=== PATIENT | male | born 1975 | race Caucasian/White ===

== ENCOUNTER 2017-08-26 12:11 | Emergency (ER) | payer BC ==
[2017-08-26] MEDS ORDERED: HYDROcodone/Acetaminophen 5/325 mg Tablet ONE (13:14)
[2017-08-26] MEDS ORDERED: Ondansetron ODT 4 MG TAB ONE (13:14)
[2017-08-26 13:45] LABS: Bilirubin Negative (Negative); Blood, Urine Trace (Negative); Clarity Clear (Clear); Glucose, Urine (Dipstick) 500 mg/dL (Negative); Leukocyte Negative (Negative); Nitrite Negative (Negative); Protein, Urine (Dipstick) 100 mg/dL (Neg-Trace); Specific Gravity, Urine 1.025 (1.005-1.030); Urobilinogen 0.2 mg/dL (0.2-1.0); pH, Urine 5.5 (5.0-9.0)
[2017-08-26 13:46] LABS: Bacteria/HPF Rare-Few HPF (None Seen); RBC/HPF 0-3 HPF (0-3); Squamous Epithelial None Seen HPF (0-3); WBC/HPF None Seen HPF (0-3)
--- NOTE | 2017-08-26 15:00 | RAD ---
RADIOGRAPH CHEST 1 VIEW: HISTORY: 42-year-old male with cough and fever. FINDINGS: There are no air space densities, pulmonary edema, pneumothorax, or cardiomegaly. The lateral costop hrenic angles are sharp. IMPRESSION: No acute cardiopulmonary findings. jn [] POS: [email or web address]
== END 2017-08-26 14:23 | disposition home or self-care (01) ==
LOC: SCSER 12:11
DX: B34.9 Viral infection, unspecified (principal); Z79.899 Other long term (current) drug therapy; Z79.4 Long term (current) use of insulin
CPT/HCPCS: 71045; 81003; 81015; 87804; Q0162

== ENCOUNTER 2018-06-15 09:00 | Outpatient (CLI) | payer BC ==
--- NOTE | 2018-06-15 10:34 | RAD ---
LUMBAR SPINE TWO VIEWS: 06/15/2018 HISTORY: Low back pain. COMPARISON: None. FINDINGS: Five lumbar type vertebral bodies are present. The pedicles appear intact on the frontal imaging. L umbar vertebral body height and alignment are within normal limits. No acute osseous abnormality is seen. IMPRESSION: No acute osseous abnormality. POS: [facility]
== END 2018-06-15 09:01 | disposition home or self-care (01) ==
LOC: BICRAD 09:00
PROVIDERS: ATTEND Family Medicine
DX: M54.5 Low back pain (principal); G89.29 Other chronic pain
CPT/HCPCS: 72100

== ENCOUNTER 2020-03-13 19:00 | Outpatient (CLI) | payer BC | END 2020-03-13 19:01 | disposition home or self-care (01) | LOC: SLEEPLAB 19:00 | PROVIDERS: ATTEND Student in an Organized Health Care Education/Training Program | DX: G47.33 Obstructive sleep apnea (adult) (pediatric) (principal); R53.83 Other fatigue; R09.89 Other specified symptoms and signs involving the circulatory and respiratory systems; R51 Headache; E66.9 Obesity, unspecified; R06.83 Snoring; G31.84 Mild cognitive impairment of uncertain or unknown etiology | CPT/HCPCS: 95810 ==

== ENCOUNTER 2020-04-02 19:00 | Outpatient (CLI) | payer BC | END 2020-04-02 19:01 | disposition home or self-care (01) | LOC: SLEEPLAB 19:00 | PROVIDERS: ATTEND Student in an Organized Health Care Education/Training Program | DX: G47.33 Obstructive sleep apnea (adult) (pediatric) (principal); R53.83 Other fatigue; R09.89 Other specified symptoms and signs involving the circulatory and respiratory systems; R51 Headache; G31.84 Mild cognitive impairment of uncertain or unknown etiology; R06.83 Snoring; E66.9 Obesity, unspecified | CPT/HCPCS: 95811 ==

== ENCOUNTER 2021-05-17 15:53 | Outpatient (CLI) | payer BC ==
[2021-05-18 00:09] LABS: SARS-CoV-2 PCR by NAA Not Detected (NotDetected)
== END 2021-05-17 15:54 | disposition home or self-care (01) ==
LOC: LABBT 15:53
PROVIDERS: ATTEND Ophthalmology Retina Specialist
DX: Z01.812 Encounter for preprocedural laboratory examination (principal); Z20.822 Contact with and (suspected) exposure to COVID-19
CPT/HCPCS: U0003; U0005

== ENCOUNTER 2021-05-20 08:22 | Day surgery (SDC) | payer BC ==
[2021-05-19 09:50] VITALS: BMI 28.5
[~2021-05-20 08:22] MED LIST: EPINEPHrine 0.3 MG, Dextrose 50% 3 ML in Ophthalmic Irrigation Solution 500 ML IRR SCH; Famotidine/PF 20 mg/2ml Vial ONE; Fentanyl 100 MCG/2 ML VIAL ONE; Midazolam HCl 2 mg/2 ml Vial ONE
[2021-05-20] MEDS ORDERED: Cyclopentolate 1% Opth Drop 2 ML BOT ONE (08:59)
[2021-05-20] MEDS ORDERED: Phenylephrine 2.5% Ophth Soln 5 ML BOT ONE (08:59)
[2021-05-20] MEDS ORDERED: Furosemide 40 MG/4 ML VIAL SLOW IVP SCH (10:15)
[2021-05-20] MEDS ORDERED: Triamcinolone 40 MG/ML VIAL ONE (10:37)
[2021-05-20] MEDS ORDERED: Lidocaine 1% PF 5 ML VIAL ONE (10:37)
[2021-05-20] MEDS ORDERED: Maxitrol 0.1% Opth Oint 3.5 GM TUBE ONE (10:37)
[2021-05-20] MEDS ORDERED: Bupivacaine PF 0.75% SDV 10 ML ONE (10:37)
[2021-05-20] MEDS ORDERED: PROPOFOL 200 MG/20 ML VIAL ONE (10:37)
[2021-05-20] MEDS ORDERED: Lidocaine 4% PF 5 ML AMP ONE (10:37)
[2021-05-20] MEDS ORDERED: Ondansetron PF 4 MG/2 ML Vial ONE (10:37)
[2021-05-20] MEDS ORDERED: Metoclopramide HCl 10 MG/2 ML VIAL ONE (10:37)
[2021-05-20] MEDS ORDERED: Dextrose 50% Abboject 50 ML SYRINGE ONE (10:37)
== END 2021-05-20 13:58 | disposition home or self-care (01) ==
LOC: SDC 08:22
PROVIDERS: ATTEND Ophthalmology Retina Specialist
PROC: 08T43ZZ Resection of Right Vitreous, Percutaneous Approach (ICD-10-PCS; principal; 2021-05-20)
PROC: 08QE3ZZ Repair Right Retina, Percutaneous Approach (ICD-10-PCS; principal; 2021-05-20)
PROC: 08NE3ZZ Release Right Retina, Percutaneous Approach (ICD-10-PCS; principal; 2021-05-20)
DX: H43.11 Vitreous hemorrhage, right eye (principal); H33.41 Traction detachment of retina, right eye; E11.9 Type 2 diabetes mellitus without complications; Z79.4 Long term (current) use of insulin; Z79.84 Long term (current) use of oral hypoglycemic drugs; Z79.899 Other long term (current) drug therapy; Z88.0 Allergy status to penicillin
CPT/HCPCS: J0171; J2250; J2405; J2704; J2765; J3010; J3301; J3490; S0028

== ENCOUNTER 2021-06-14 15:12 | Outpatient (CLI) | payer BC ==
[2021-06-15 09:11] LABS: SARS-CoV-2 PCR by NAA Not Detected (NotDetected)
== END 2021-06-14 15:13 | disposition home or self-care (01) ==
LOC: LABBT 15:12
PROVIDERS: ATTEND Ophthalmology Retina Specialist
DX: Z01.812 Encounter for preprocedural laboratory examination (principal); Z20.822 Contact with and (suspected) exposure to COVID-19
CPT/HCPCS: U0003; U0005

== ENCOUNTER 2021-06-17 10:00 | Day surgery (SDC) | payer BC ==
[2021-06-15 13:30] VITALS: BMI 29.2
[~2021-06-17 10:00] MED LIST changes: -Famotidine/PF 20 mg/2ml Vial ONE; -Fentanyl 100 MCG/2 ML VIAL ONE; -Midazolam HCl 2 mg/2 ml Vial ONE
[2021-06-17] MEDS ORDERED: Cyclopentolate 1% Opth Drop 2 ML BOT ONE (10:57)
[2021-06-17] MEDS ORDERED: Phenylephrine 2.5% Ophth Soln 5 ML BOT ONE (10:57)
[2021-06-17] MEDS ORDERED: Lidocaine 4% PF 5 ML AMP ONE (12:20)
[2021-06-17] MEDS ORDERED: Dextrose 50% Abboject 50 ML SYRINGE ONE (12:20)
[2021-06-17] MEDS ORDERED: Lidocaine 1% PF 5 ML VIAL ONE (12:20)
[2021-06-17] MEDS ORDERED: Ondansetron PF 4 MG/2 ML Vial ONE (12:20)
[2021-06-17] MEDS ORDERED: Maxitrol 0.1% Opth Oint 3.5 GM TUBE ONE (12:20)
[2021-06-17] MEDS ORDERED: Triamcinolone 40 MG/ML VIAL ONE (12:20)
[2021-06-17] MEDS ORDERED: Bupivacaine PF 0.75% SDV 10 ML ONE (12:20)
[2021-06-17] MEDS ORDERED: PROPOFOL 200 MG/20 ML VIAL ONE (12:20)
[2021-06-17] MEDS ORDERED: Fentanyl 100 MCG/2 ML VIAL ONE (12:27)
== END 2021-06-17 14:21 | disposition home or self-care (01) ==
LOC: SDC 10:00
PROVIDERS: ATTEND Ophthalmology Retina Specialist
PROC: 08T53ZZ Resection of Left Vitreous, Percutaneous Approach (ICD-10-PCS; principal; 2021-06-17)
DX: H33.42 Traction detachment of retina, left eye (principal); Z79.4 Long term (current) use of insulin; Z79.84 Long term (current) use of oral hypoglycemic drugs; Z79.899 Other long term (current) drug therapy; Z88.0 Allergy status to penicillin
CPT/HCPCS: 36416; J0171; J2405; J2704; J3010; J3301; J3490

== ENCOUNTER 2021-08-02 07:10 | Outpatient (CLI) | payer BC ==
[2021-08-02 21:41] LABS: SARS-CoV-2 PCR by NAA Not Detected (NotDetected)
== END 2021-08-02 07:11 | disposition home or self-care (01) ==
LOC: LABBT 07:10
PROVIDERS: ATTEND Ophthalmology Retina Specialist
DX: Z01.812 Encounter for preprocedural laboratory examination (principal); H33.22 Serous retinal detachment, left eye; H54.7 Unspecified visual loss; Z20.822 Contact with and (suspected) exposure to COVID-19
CPT/HCPCS: U0003; U0005

== ENCOUNTER 2021-08-05 08:04 | Day surgery (SDC) | payer BC ==
[2021-08-02 11:53] VITALS: BMI 29.2
[~2021-08-05 08:04] MED LIST changes: -EPINEPHrine 0.3 MG, Dextrose 50% 3 ML in Ophthalmic Irrigation Solution 500 ML IRR SCH; +Fentanyl 100 MCG/2 ML VIAL ONE; +Midazolam HCl 2 mg/2 ml Vial ONE
[2021-08-05] MEDS ORDERED: Lidocaine 1% MPF 2 ML VIAL ONE (09:11)
[2021-08-05] MEDS ORDERED: Cyclopentolate 1% Opth Drop 2 ML BOT ONE (09:51)
[2021-08-05] MEDS ORDERED: Phenylephrine 2.5% Ophth Soln 5 ML BOT ONE (09:52)
[2021-08-05] MEDS ORDERED: Fentanyl 100 MCG/2 ML VIAL ONE (11:00)
[2021-08-05] MEDS ORDERED: Midazolam HCl 2 mg/2 ml Vial ONE (11:00)
[2021-08-05] MEDS ORDERED: PROPOFOL 20 ML ONE (11:00)
[2021-08-05] MEDS ORDERED: Maxitrol 0.1% Opth Oint 3.5 GM TUBE ONE (11:05)
[2021-08-05] MEDS ORDERED: Indocyanine Green 25 MG/10 ML VIAL ONE (11:05)
[2021-08-05] MEDS ORDERED: Triamcinolone 40 MG/ML VIAL ONE (11:05)
[2021-08-05] MEDS ORDERED: Bupivacaine PF 0.75% SDV 10 ML ONE (11:05)
[2021-08-05] MEDS ORDERED: Lidocaine 4% PF 5 ML AMP ONE (11:05)
[2021-08-05] MEDS ORDERED: Enoxaparin Sodium 30 MG/0.3 ML SYRINGE ONE (11:05)
[2021-08-05] MEDS ORDERED: CEFAZOLIN 1 GM VIAL ONE (11:05)
[2021-08-05] MEDS ORDERED: PROPOFOL 200 MG/20 ML VIAL ONE (11:05)
[2021-08-05] MEDS ORDERED: Dextrose 50% Abboject 50 ML SYRINGE ONE (11:05)
[2021-08-05] MEDS ORDERED: Fluorouracil 100 MG, Enoxaparin Sodium 25 MG, EPINEPHrine 0.3 MG, Dextrose 50% 3 ML in ... IRR SCH (13:00)
== END 2021-08-05 13:30 | disposition home or self-care (01) ==
LOC: SDC 08:04
PROVIDERS: ATTEND Ophthalmology Retina Specialist
PROC: 08T53ZZ Resection of Left Vitreous, Percutaneous Approach (ICD-10-PCS; principal; 2021-08-05)
PROC: 08NF3ZZ Release Left Retina, Percutaneous Approach (ICD-10-PCS; principal; 2021-08-05)
DX: H35.372 Puckering of macula, left eye (principal); H33.42 Traction detachment of retina, left eye; Z79.4 Long term (current) use of insulin; Z79.84 Long term (current) use of oral hypoglycemic drugs; Z79.899 Other long term (current) drug therapy; Z88.0 Allergy status to penicillin; Z98.890 Other specified postprocedural states
CPT/HCPCS: 67025; J0171; J0690; J1650; J2250; J2704; J3010; J3301; J3490; J9190

== ENCOUNTER 2022-03-10 06:26 | Day surgery (SDC) | payer OTHER ==
[2022-03-08 16:13] VITALS: BMI 28.5
[~2022-03-10 06:26] MED LIST changes: -Fentanyl 100 MCG/2 ML VIAL ONE; +Fluorouracil 100 MG, Enoxaparin Sodium 25 MG, EPINEPHrine 0.3 MG, Dextrose 50% 3 ML in ... IRR SCH; -Midazolam HCl 2 mg/2 ml Vial ONE
[2022-03-10] MEDS ORDERED: Midazolam HCl 2 mg/2 ml Vial ONE (06:33)
[2022-03-10] MEDS ORDERED: fentaNYL Citrate/PF 100 MCG/2 ML SYRINGE ONE (06:33)
[2022-03-10] MEDS ORDERED: Phenylephrine 2.5% Ophth Soln 5 ML BOT ONE (06:42)
[2022-03-10] MEDS ORDERED: Cyclopentolate 1% Opth Drop 2 ML BOT ONE (06:42)
[2022-03-10] MEDS ORDERED: Indocyanine Green 25 MG/10 ML VIAL ONE (08:01)
[2022-03-10] MEDS ORDERED: Bupivacaine 0.75% 10 ML VIAL ONE (08:01)
[2022-03-10] MEDS ORDERED: Dextrose 50% Abboject 50 ML SYRINGE ONE (08:01)
[2022-03-10] MEDS ORDERED: Triamcinolone 40 MG/ML VIAL ONE (08:01)
[2022-03-10] MEDS ORDERED: PROPOFOL 200 MG/20 ML VIAL ONE (08:01)
[2022-03-10] MEDS ORDERED: Maxitrol 0.1% Opth Oint 3.5 GM TUBE ONE (08:01)
[2022-03-10] MEDS ORDERED: Lidocaine 4% PF 5 ML AMP ONE (08:01)
[2022-03-10] MEDS ORDERED: Enoxaparin Sodium 30 MG/0.3 ML SYRINGE ONE (08:01)
== END 2022-03-10 09:32 | disposition home or self-care (01) ==
LOC: SDC 06:26
PROVIDERS: ATTEND Ophthalmology Retina Specialist
PROC: 08NF3ZZ Release Left Retina, Percutaneous Approach (ICD-10-PCS; principal; 2022-03-10)
PROC: 08T53ZZ Resection of Left Vitreous, Percutaneous Approach (ICD-10-PCS; principal; 2022-03-10)
DX: H35.372 Puckering of macula, left eye (principal); E11.9 Type 2 diabetes mellitus without complications; Z79.4 Long term (current) use of insulin; Z79.84 Long term (current) use of oral hypoglycemic drugs; Z79.899 Other long term (current) drug therapy; Z88.0 Allergy status to penicillin
CPT/HCPCS: J0171; J1650; J2250; J2704; J3301; J3490; J7999; J9190

== ENCOUNTER 2022-11-25 00:24 | Emergency (ER) | payer BC, OTHER ==
[2022-11-25] MEDS ORDERED: Dextrose 50% Abboject 50 ML SYRINGE ONE (01:09)
[2022-11-25 01:48] LABS: #Basophils 0.1 thou/uL (0.0-0.2); #Eosinphils 0.5 thou/uL (0.0-0.7); #Monocytes 1.4 thou/uL (0.11-0.59); #Neutrophils 9.5 thou/uL (1.40-6.50); %Basophils 0.9 % (0.0-1.0); %Eosinophils 3.8 % (0.0-10.0); %Lymphocytes 14.1 % (21.0-51.0); %Monocytes 10.2 % (0.0-10.0); %Neutrophils 70.2 % (42.0-75.0); Hemoglobin 15.7 g/dL (14.0-18.0); Mean Corpuscular HGB CONC 34.1 g/dL (32.0-36.0); Mean Corpuscular Hemoglobin 28.5 pg (27.0-31.0); Mean Corpuscular Volume 83.8 fl (78.0-98.0); Mean Platelet Volume 9.6 fL (7.4-10.4); Platelet Count 338 10x3/uL (130-400); RBC Distribution Width 13.1 % (11.5-14.5); White Blood Cell (WBC) Count 13.6 10x3/uL (4.8-10.8)
[2022-11-25 02:09] LABS: ALT (SGPT) 41 U/L (8-55); AST (SGOT) 38 U/L (5-34); Albumin 4.4 g/dL (3.5-5.0); Alkaline Phosphatase 91 U/L (40-110); Anion Gap 14 mmol/L (10-20); BUN (Urea Nitrogen) 15 mg/dL (8.9-20.6); Bilirubin, Total 0.4 mg/dL (0.2-1.2); Calc. Creatinine Clearance 0 mL/min (70-130); Calcium 9.6 mg/dL (7.8-10.44); Carbon Dioxide 24 mmol/L (22-29); Chloride 103 mmol/L (98-107); Estimated GFR 79; Globulin 2.9 g/dL (2.4-3.5); Glucose 150 mg/dL (70-105); Potassium 3.8 mmol/L (3.5-5.1); Protein, Total 7.3 g/dL (6.0-8.3); Sodium 137 mmol/L (136-145)
== END 2022-11-25 04:24 | disposition home or self-care (01) ==
LOC: ERS 00:24
DX: E10.649 Type 1 diabetes mellitus with hypoglycemia without coma (principal); D72.829 Elevated white blood cell count, unspecified; E78.5 Hyperlipidemia, unspecified; I10 Essential (primary) hypertension
CPT/HCPCS: 36415; 36416; 80053; 85025; 96374; J7999

== ENCOUNTER 2023-08-07 09:12 | Emergency (ER) | payer BC ==
[2023-08-07 09:51] LABS: Bacteria/HPF None Seen HPF (None Seen); Bilirubin Negative (Negative); Blood, Urine 1+ (Negative); CAUTI Indications for Culture Pelvic or flank pain; Clarity Clear (Clear); Glucose, Urine (Dipstick) 500 mg/dL (Negative); Ketone, Urine Negative (Negative); Leukocyte Negative Leu/uL (Negative); Nitrite Negative (Negative); Protein, Urine (Dipstick) 300 mg/dL (Neg-Trace); RBC/HPF 0-3 HPF (0-3); Specific Gravity, Urine 1.028 (1.002-1.036); Squamous Epithelial None Seen HPF (0-3); Urine Culture Reflex No No; Urobilinogen Normal mg/dL (Less than 2); WBC/HPF 0-3 HPF (0-3)
[2023-08-07 09:53] LABS: #Basophils 0.1 thou/uL (0.0-0.2); #Eosinphils 0.1 thou/uL (0.0-0.7); #Monocytes 1.1 thou/uL (0.11-0.59); %Basophils 0.4 % (0.0-1.0); %Eosinophils 0.3 % (0.0-10.0); %Lymphocytes 5.2 % (21.0-51.0); %Monocytes 5.8 % (0.0-10.0); %Neutrophils 87.7 % (42.0-75.0); Hematocrit 51.3 % (42.0-52.0); Hemoglobin 17.6 g/dL (14.0-18.0); Mean Corpuscular HGB CONC 34.3 g/dL (32.0-36.0); Mean Corpuscular Hemoglobin 29.2 pg (27.0-31.0); Mean Corpuscular Volume 85.2 fl (78.0-98.0); Mean Platelet Volume 10.2 fL (7.4-10.4); Platelet Count 306 10x3/uL (130-400); RBC Distribution Width 13.4 % (11.5-14.5); Red Blood Cell (RBC) Count 6.02 mill/uL (4.70-6.10); White Blood Cell (WBC) Count 19.3 10x3/uL (4.8-10.8)
[2023-08-07 10:12] LABS: ALT (SGPT) 56 U/L (8-55); AST (SGOT) 42 U/L (5-34); Albumin 4.9 g/dL (3.5-5.0); Alkaline Phosphatase 66 U/L (40-110); Anion Gap 16 mmol/L (10-20); BUN (Urea Nitrogen) 16 mg/dL (8.9-20.6); Bilirubin, Total 0.8 mg/dL (0.2-1.2); Calc. Creatinine Clearance 0 mL/min (70-130); Calcium 10.4 mg/dL (7.8-10.44); Carbon Dioxide 25 mmol/L (22-29); Chloride 101 mmol/L (98-107); Estimated GFR 58; Glucose 220 mg/dL (70-105); Lipase 14 U/L (8-78); Potassium 4.8 mmol/L (3.5-5.1); Protein, Total 7.9 g/dL (6.0-8.3); Sodium 137 mmol/L (136-145)
[2023-08-07] MEDS ORDERED: Morphine 4 MG/ML VIAL ONE (10:28)
[2023-08-07 12:13] LABS: Troponin I Less than 0.010 ng/mL (< 0.028)
[2023-08-07] MEDS ORDERED: Lidocaine 2% Viscous Solution 10 ML, Aluminum & Magnesium Hydroxide 30 ML SSW SCH (13:00)
[2023-08-07] MEDS ORDERED: Iopamidol-370 76% 500 ML MDV (1 ML CHARGE) ONE (13:37)
== END 2023-08-07 13:30 | disposition home or self-care (01) ==
LOC: ERS 09:12
DX: R10.10 Upper abdominal pain, unspecified (principal); I10 Essential (primary) hypertension; E10.9 Type 1 diabetes mellitus without complications
CPT/HCPCS: 36415; 74177; 76705; 80053; 81001; 83690; 84484; 85025; 93005; 96374; J2270; Q9967